=== PATIENT | female | born 1975 | race African-American/Black ===

== ENCOUNTER 2022-10-03 08:58 | Emergency (ER) | payer OTHER ==
[2022-10-03 09:17] VITALS: BMI 25.7
[2022-10-03] MEDS ORDERED: ACETAMINOPHEN 500 MG TABLET (FP) PO ONE (10:28)
[2022-10-03] MEDS ORDERED: ACETAMINOPHEN 500 MG TABLET (FP) ONE (10:50)
[2022-10-03 11:34] VITALS: BP 109/70; PULSE 102; RESP 20; TEMP 99.7
== END 2022-10-03 14:41 | disposition home or self-care (01) ==
LOC: JER 08:58
DX: J09.X2 Influenza due to identified novel influenza A virus with other respiratory manifestations (principal); J06.9 Acute upper respiratory infection, unspecified
CPT/HCPCS: 0241U-QW; 99283-25

== ENCOUNTER 2023-11-13 14:56 | Emergency (ER) | payer OTHER ==
[2023-11-13] MEDS ORDERED: ACETAMINOPHEN 500 MG TABLET (FP) PO ONE (15:53)
[2023-11-13] MEDS ORDERED: ACETAMINOPHEN 325 MG TABLET (FP) ONE (15:58)
[2023-11-13 16:04] VITALS: BMI 25.7
[2023-11-13 17:01] LABS: BASO % 0.4 % (0-2.0); EOS % 1.7 % (0-4.5); HEMATOCRIT 28.5 % (32.4-45.2); HEMOGLOBIN 8.7 GM/dL (10.7-15.3); LYMPH % 30.2 % (8-40); MCH 20.8 pg (25.7-33.7); MCHC 30.7 g/dl (32.0-36.0); MEAN CELL VOLUME 67.8 fl (80-96); MEAN PLT VOLUME 11.1 fl (7.5-11.1); MONO % 5.5 % (3.8-10.2); NEUT % 62.2 % (42.8-82.8); PLATELET COUNT 234 10^3/uL (134-434); RDW 17.7 % (11.6-15.6); WHITE BLOOD COUNT 7.5 K/mm3 (4.0-10.0)
[2023-11-13 17:20] LABS: POTASSIUM 4.3 mmol/L (3.5-5.1)
[2023-11-13 17:22] LABS: ALBUMIN 3.5 g/dl (3.4-5.0); BLOOD UREA NITROGEN 10.5 mg/dL (7-18)
[2023-11-13 17:25] LABS: CREATININE 0.7 mg/dL (0.55-1.3)
[2023-11-13 17:27] LABS: TOT PROT 7.2 g/dl (6.4-8.2)
[2023-11-13 17:28] LABS: BILIRUBIN,TOTAL 1.2 mg/dL (0.2-1)
[2023-11-13 17:32] LABS: ANISOCYTOSIS 2+; MACROCYTOSIS 0; OVALOCYTE 1+; TARGET CELLS 1+; TEAR DROP CELLS 1+
[2023-11-13 17:52] VITALS: BP 134/77; PULSE 62; RESP 20; TEMP 98.4
== END 2023-11-13 17:52 | disposition home or self-care (01) ==
LOC: JER 14:56
DX: R07.9 Chest pain, unspecified (principal); R06.00 Dyspnea, unspecified; R53.83 Other fatigue
CPT/HCPCS: 36415; 71045-TC-FY; 80053; 82550; 84484; 84703; 85025; 93005; 93010; 99285-25

== ENCOUNTER 2023-11-16 23:13 | Emergency (ER) | payer OTHER ==
[2023-11-16 23:22] VITALS: TEMP 98.4; BMI 25.7
[2023-11-16] MEDS ORDERED: ACETAMINOPHEN 1000 MG/100 ML BAG IVPB ONE (23:47)
[2023-11-16] MEDS ORDERED: ACETAMINOPHEN INJECTION 100 ML IVPB ONE (23:56)
[2023-11-17] MEDS ORDERED: NITROGLYCERIN SUBLINGUAL 1/150 0.4 MG TAB SL ONE (00:07)
[2023-11-17] MEDS ORDERED: NITROGLYCERIN SUBLINGUAL 1/150 0.4 MG TAB ONE (00:11)
[2023-11-17 00:39] LABS: URINE APPEARANCE CLEAR; URINE BILIRUBIN NEGATIVE (NEGATIVE); URINE COLOR YELLOW; URINE GLUCOSE (UA) NEGATIVE (NEGATIVE); URINE KETONE NEGATIVE (NEGATIVE); URINE LEUK ESTERASE NEGATIVE (NEGATIVE); URINE NITRITE NEGATIVE (NEGATIVE); URINE PROTEIN NEGATIVE (NEGATIVE)
[2023-11-17] MEDS ORDERED: HYDROCHLOROTHIAZIDE 25 MG TABLET (FP) PO ONE (00:43)
[2023-11-17 00:51] LABS: POTASSIUM 3.6 mmol/L (3.5-5.1)
[2023-11-17 00:54] LABS: CALCIUM 9.1 mg/dL (8.5-10.1)
[2023-11-17 00:55] LABS: ALBUMIN 3.7 g/dl (3.4-5.0)
[2023-11-17 00:57] LABS: CREATININE 0.5 mg/dL (0.55-1.3)
[2023-11-17 00:58] LABS: HCG,QUALITATIVE URINE Negative
[2023-11-17 01:00] LABS: BASO % 0.5 % (0-2.0); BILIRUBIN,TOTAL 1.1 mg/dL (0.2-1); EOS % 1.3 % (0-4.5); HEMATOCRIT 29.7 % (32.4-45.2); HEMOGLOBIN 9.2 GM/dL (10.7-15.3); LYMPH % 39.9 % (8-40); MCH 21.1 pg (25.7-33.7); MCHC 30.9 g/dl (32.0-36.0); MEAN CELL VOLUME 68.2 fl (80-96); MEAN PLT VOLUME 10.6 fl (7.5-11.1); MONO % 7.7 % (3.8-10.2); NEUT % 50.6 % (42.8-82.8); PLATELET COUNT 215 10^3/uL (134-434); RBC 4.36 M/mm3 (3.60-5.2); RDW 17.4 % (11.6-15.6); TOT PROT 7.3 g/dl (6.4-8.2); WHITE BLOOD COUNT 6.9 K/mm3 (4.0-10.0)
[2023-11-17 01:04] VITALS: RESP 19
[2023-11-17] MEDS ORDERED: POTASSIUM CHLORIDE TABS 20 MEQ TABLET.ER (FP) PO ONE ×2 (01:13→01:19)
[2023-11-17] MEDS ORDERED: MAGNESIUM SULF 50% (8.12 MEQ/2 ML-1 GM VIAL) IVPB ONE (01:13)
[2023-11-17] MEDS ORDERED: MAGNESIUM SULFATE IN WATER 2 GM/50 ML IVPB IVPB ONE (01:19)
[2023-11-17 01:24] VITALS: BP 135/86; PULSE 66
[2023-11-17 04:08] LABS: ANISOCYTOSIS 2+; MACROCYTOSIS 0; OVALOCYTE 2+; TEAR DROP CELLS 2+
== END 2023-11-17 02:14 | disposition home or self-care (01) ==
LOC: JER 23:13
PROC: 3E033NZ Introduction of Analgesics, Hypnotics, Sedatives into Peripheral Vein, Percutaneous Approach (ICD-10-PCS; principal; 2023-11-17)
PROC: 3E033GC Introduction of Other Therapeutic Substance into Peripheral Vein, Percutaneous Approach (ICD-10-PCS; 2023-11-17)
DX: I10 Essential (primary) hypertension (principal); R51.9 Headache, unspecified; R42 Dizziness and giddiness; R07.89 Other chest pain; R06.02 Shortness of breath; M54.9 Dorsalgia, unspecified; M54.2 Cervicalgia; M54.6 Pain in thoracic spine
CPT/HCPCS: 36415; 71045-TC-FY; 80053; 81003; 84484; 84703; 85025; 93005; 93010; 99285-25

== ENCOUNTER 2023-12-16 23:30 | Emergency (ER) | payer OTHER ==
[2023-12-16 23:46] VITALS: BP 158/94; PULSE 81; RESP 18; TEMP 98.8; BMI 26.7
[2023-12-17] MEDS ORDERED: ACETAMINOPHEN 325 MG TABLET (FP) ONE
[2023-12-17] MEDS: ACETAMINOPHEN 325 MG TABLET (FP) PO ONE (00:02)
== END 2023-12-17 01:40 | disposition home or self-care (01) ==
LOC: JER 23:30
DX: M54.2 Cervicalgia (principal); R51.9 Headache, unspecified; M54.50 Low back pain, unspecified; M79.10 Myalgia, unspecified site; V49.50XA Passenger injured in collision with unspecified motor vehicles in traffic accident, initial encounter; Y92.410 Unspecified street and highway as the place of occurrence of the external cause
CPT/HCPCS: 70450-TC; 71045-TC-FY; 72125-TC; 72131-TC; 72170-TC-FY; 99284-25

== ENCOUNTER 2023-12-24 08:22 | Day surgery (SDC) | payer OTHER ==
[2023-12-24] MEDS: FERRIC CARBOXYMALTOSE 750 MG in SODIUM CHLORIDE 250 ML IVPB ONE (09:05)
[2023-12-24 09:11] VITALS: RESP 18; TEMP 98.3
[2023-12-24 10:04] VITALS: BP 109/70; PULSE 69
== END 2023-12-24 10:15 | disposition home or self-care (01) ==
LOC: JONCNONCHE 08:22 → J7W 08:23 → JONCNONCHE 10:15
PROVIDERS: ATTEND Internal Medicine Hematology & Oncology
PROC: 3E033GC Introduction of Other Therapeutic Substance into Peripheral Vein, Percutaneous Approach (ICD-10-PCS; principal; 2023-12-24)
DX: D50.9 Iron deficiency anemia, unspecified (principal)
CPT/HCPCS: 96365; J1439

== ENCOUNTER 2023-12-31 09:24 | Day surgery (SDC) | payer OTHER ==
[2023-12-31 09:32] VITALS: PULSE 82; TEMP 97.7
[2023-12-31] MEDS: FERRIC CARBOXYMALTOSE 750 MG in SODIUM CHLORIDE 250 ML IVPB ONE (10:06)
[2023-12-31 11:24] VITALS: BP 144/90; RESP 20
== END 2023-12-31 11:30 | disposition short-term general hospital (02) ==
LOC: JONCNONCHE 09:24 → J7W 09:25 → JONCNONCHE 11:30
PROVIDERS: ATTEND Internal Medicine Hematology & Oncology
PROC: 3E033GC Introduction of Other Therapeutic Substance into Peripheral Vein, Percutaneous Approach (ICD-10-PCS; principal; 2023-12-31)
DX: D50.9 Iron deficiency anemia, unspecified (principal)
CPT/HCPCS: 96365; J1439

== ENCOUNTER 2023-12-31 11:29 | Emergency (ER) | payer OTHER ==
[2023-12-31 11:38] VITALS: BP 147/90; PULSE 94; RESP 18; TEMP 98.3; BMI 26.4
[2023-12-31 13:36] LABS: EOS % 1.1 % (0-4.5); HEMATOCRIT 24.9 % (32.4-45.2); LYMPH % 25.4 % (8-40); MCH 20.8 pg (25.7-33.7); MCHC 32.2 g/dl (32.0-36.0); MEAN CELL VOLUME 64.8 fl (80-96); MONO % 6.1 % (3.8-10.2); NEUT % 66.4 % (42.8-82.8); PLATELET COUNT 307 10^3/uL (134-434); RBC 3.85 M/mm3 (3.60-5.2); RDW 15.9 % (11.6-15.6); WHITE BLOOD COUNT 7.9 K/mm3 (4.0-10.0)
[2023-12-31 13:59] LABS: POTASSIUM 3.7 mmol/L (3.5-5.1)
[2023-12-31 14:01] LABS: CALCIUM 8.7 mg/dL (8.5-10.1)
[2023-12-31 14:02] LABS: ALBUMIN 3.8 g/dl (3.4-5.0); BLOOD UREA NITROGEN 8.8 mg/dL (7-18)
[2023-12-31 14:05] LABS: CREATININE 0.5 mg/dL (0.55-1.3)
[2023-12-31 14:06] LABS: BILIRUBIN,TOTAL 0.9 mg/dL (0.2-1); TOT PROT 7.4 g/dl (6.4-8.2)
[2023-12-31 14:33] LABS: ANISOCYTOSIS 2+; MACROCYTOSIS 0
[2023-12-31] MEDS ORDERED: ACETAMINOPHEN 325 MG TABLET (FP) ONE (14:50)
[2023-12-31] MEDS: ACETAMINOPHEN 500 MG TABLET (FP) PO ONE (14:58)
== END 2023-12-31 14:59 | disposition home or self-care (01) ==
LOC: JER 11:29
DX: T80.89XA Other complications following infusion, transfusion and therapeutic injection, initial encounter (principal); R07.89 Other chest pain; R53.1 Weakness; R20.2 Paresthesia of skin; R10.9 Unspecified abdominal pain
CPT/HCPCS: 36415; 71046-TC-FY; 80053; 83880; 84484; 84703; 85025; 85379; 93005; 93010; 99285-25

== ENCOUNTER 2023-12-31 19:53 | Emergency (ER) | payer OTHER ==
[2023-12-31 19:59] VITALS: TEMP 98.4; BMI 26.1
[2023-12-31 21:25] LABS: BASO % 0.5 % (0-2.0); EOS % 1.2 % (0-4.5); HEMATOCRIT 24.7 % (32.4-45.2); HEMOGLOBIN 7.6 GM/dL (10.7-15.3); LYMPH % 24.6 % (8-40); MCH 20.3 pg (25.7-33.7); MCHC 30.8 g/dl (32.0-36.0); MEAN CELL VOLUME 65.7 fl (80-96); MEAN PLT VOLUME 9.5 fl (7.5-11.1); MONO % 5.7 % (3.8-10.2); PLATELET COUNT 249 10^3/uL (134-434); RBC 3.76 M/mm3 (3.60-5.2); RDW 16.2 % (11.6-15.6); WHITE BLOOD COUNT 7.6 K/mm3 (4.0-10.0)
[2023-12-31 21:32] LABS: INR 1.19 (0.83-1.09); PROTHROMBIN TIME (PATIENT) 13.8 SEC (9.7-13.0)
[2023-12-31 21:34] LABS: ACTIVATED PTT 27.6 SECONDS (25.2-36.5)
[2023-12-31 21:43] LABS: POTASSIUM 3.1 mmol/L (3.5-5.1)
[2023-12-31 21:45] LABS: CALCIUM 8.3 mg/dL (8.5-10.1)
[2023-12-31 21:46] LABS: ALBUMIN 3.8 g/dl (3.4-5.0)
[2023-12-31 21:49] LABS: CREATININE 0.6 mg/dL (0.55-1.3)
[2023-12-31 21:50] LABS: BILIRUBIN,TOTAL 1.2 mg/dL (0.2-1); TOT PROT 7.3 g/dl (6.4-8.2)
[2023-12-31 22:03] LABS: MAGNESIUM 1.6 mg/dL (1.8-2.4)
[2023-12-31] MEDS ORDERED: POTASSIUM CHLORIDE TABS 20 MEQ TABLET.ER (FP) PO ONE (22:34)
[2023-12-31] MEDS ORDERED: MAGNESIUM SULFATE IN WATER 2 GM/50 ML IVPB IVPB ONE (22:34)
[2023-12-31] MEDS: MAGNESIUM SULF 50% (8.12 MEQ/2 ML-1 GM VIAL) IVPB ONE (23:10)
[2023-12-31] MEDS: SODIUM CHLORIDE 0.9% 500 ML INFUS.BAG IV ONE (23:10)
[2023-12-31] MEDS: POTASSIUM CHLORIDE TABS 20 MEQ TABLET.ER (FP) PO ONE (23:15)
[2024-01-01 00:25] VITALS: BP 123/96; PULSE 79; RESP 14
== END 2024-01-01 01:22 | disposition home or self-care (01) ==
LOC: JER 19:53
PROC: 3E033NZ Introduction of Analgesics, Hypnotics, Sedatives into Peripheral Vein, Percutaneous Approach (ICD-10-PCS; principal; 2023-12-31)
DX: R06.02 Shortness of breath (principal); N93.9 Abnormal uterine and vaginal bleeding, unspecified; R10.9 Unspecified abdominal pain; R00.0 Tachycardia, unspecified; E87.6 Hypokalemia; E83.42 Hypomagnesemia
CPT/HCPCS: 36415; 71275-TC; 80053; 83735; 84484; 85025; 85610; 85730; 86850; 86900; 86901; 93005; 93010; 99285-25; Q9967

== ENCOUNTER 2024-05-11 08:49 | Emergency (ER) | payer OTHER ==
[2024-05-11 08:58] VITALS: RESP 18; TEMP 98.2; BMI 25.7
[2024-05-11] MEDS ORDERED: LIDOCAINE 4% PATCH TP ONE (10:07)
[2024-05-11] MEDS ORDERED: KETOROLAC TROMETHAMINE 30 MG/1 ML VIAL ONE (10:07)
[2024-05-11] MEDS: LIDOCAINE 4% PATCH TP ONE (10:13)
[2024-05-11 11:34] LABS: BASO % 1.1 % (0-2.0); EOS % 0.9 % (0-4.5); HEMOGLOBIN 10.4 GM/dL (10.7-15.3); LYMPH % 35.6 % (8-40); MCH 21.6 pg (25.7-33.7); MCHC 31.5 g/dl (32.0-36.0); MEAN CELL VOLUME 68.7 fl (80-96); MEAN PLT VOLUME 9.6 fl (7.5-11.1); NEUT % 56.4 % (42.8-82.8); PLATELET COUNT 256 10^3/uL (134-434); RBC 4.81 M/mm3 (3.60-5.2); RDW 16.5 % (11.6-15.6); WHITE BLOOD COUNT 6.5 K/mm3 (4.0-10.0)
[2024-05-11 11:36] LABS: INR 1.12 (0.83-1.09); PROTHROMBIN TIME (PATIENT) 12.8 SEC (9.7-13.0)
[2024-05-11 11:40] LABS: ACTIVATED PTT 29.3 SECONDS (25.2-36.5)
[2024-05-11] MEDS: KETOROLAC TROMETHAMINE 15 MG/ML VIAL IVPUSH ONE (12:04)
[2024-05-11] MEDS: KETOROLAC TROMETHAMINE 30 MG/1 ML VIAL IM ONE (12:05)
[2024-05-11 12:12] LABS: CALCIUM 9.8 mg/dL (8.5-10.1)
[2024-05-11 12:13] LABS: ALBUMIN 4.5 g/dl (3.4-5.0); BLOOD UREA NITROGEN 11.2 mg/dL (7-18)
[2024-05-11 12:16] LABS: ANISOCYTOSIS 2+; CREATININE 0.6 mg/dL (0.55-1.3); MACROCYTOSIS 0; TARGET CELLS 1+
[2024-05-11 12:18] LABS: BILIRUBIN,TOTAL 1.2 mg/dL (0.2-1)
[2024-05-11 16:28] VITALS: BP 124/80; PULSE 82
[2024-05-11] MEDS ORDERED: LIDOCAINE PATCH REMOVAL MC SCH (22:00)
== END 2024-05-11 16:28 | disposition home or self-care (01) ==
LOC: JERFT 08:49
PROC: 3E0333Z Introduction of Anti-inflammatory into Peripheral Vein, Percutaneous Approach (ICD-10-PCS; principal; 2024-05-11)
DX: M50.00 Cervical disc disorder with myelopathy, unspecified cervical region (principal); R20.0 Anesthesia of skin; Z20.822 Contact with and (suspected) exposure to COVID-19
CPT/HCPCS: 0241U-QW; 36415; 72141-TC; 80053; 84703; 85025; 85610; 85730; 86850; 86900; 86901; 99284-25

== ENCOUNTER 2024-06-24 04:06 | Day surgery (SDC) | payer OTHER ==
[2024-06-24] MEDS ORDERED: PHENAZOPYRIDINE HCL 100 MG TABLET (FP) ONE (06:25)
[2024-06-24] MEDS: PHENAZOPYRIDINE HCL 100 MG TABLET (FP) PO ONE (06:57)
[2024-06-24] MEDS ORDERED: CEFAZOLIN 2 GM in DEXTROSE 5%-WATER 100 ML IVPB ONE (07:00)
[2024-06-24] MEDS ORDERED: ACETAMINOPHEN 1000 MG/100 ML BAG IVPB ONE (07:00)
[2024-06-24] MEDS ORDERED: TRANEXAMIC ACID 1000 MG/10 ML VIAL IVPUSH ONE (07:30)
[2024-06-24] MEDS ORDERED: ACETAMINOPHEN INJECTION 100 ML IVPB ONE (07:32)
[2024-06-24] MEDS ORDERED: SEVOFLURANE 250 ML BTL ONE (07:32)
[2024-06-24] MEDS ORDERED: PROPOFOL 20 ML ONE (07:33)
[2024-06-24] MEDS ORDERED: HYDROmorphone HCl 2 MG/ML VIAL ONE (07:33)
[2024-06-24] MEDS ORDERED: MIDAZOLAM HCL 2 MG/2 ML SINGLE DOSE VIAL ONE (07:33)
[2024-06-24] MEDS ORDERED: SUGAMMADEX SODIUM 200 MG/2 ML VIAL ONE (07:33)
[2024-06-24] MEDS ORDERED: ROCURONIUM BROMIDE 50 MG/5 ML SYRINGE ONE (07:33)
[2024-06-24] MEDS ORDERED: ONDANSETRON 4 MG/2 ML VIAL ONE (07:34)
[2024-06-24] MEDS ORDERED: DEXAMETHASONE SOD PHOSPHATE 4 MG/1 ML VIAL ONE (07:34)
[2024-06-24] MEDS ORDERED: LIDOCAINE HCL/PF 2% SDV 5ML VIAL ONE (07:34)
[2024-06-24] MEDS: ceFAZolin SODIUM 1 GM VIAL IVPB ONE (07:55)
[2024-06-24] MEDS ORDERED: ceFAZolin SODIUM 1 GM VIAL ONE ×2 (07:57→12:54)
[2024-06-24] MEDS ORDERED: TRANEXAMIC ACID 1000 MG/10 ML VIAL ONE (07:57)
[2024-06-24] MEDS ORDERED: KETOROLAC TROMETHAMINE 30 MG/1 ML VIAL ONE (08:54)
[2024-06-24] MEDS ORDERED: ONDANSETRON 4 MG/2 ML VIAL IVPUSH PRN ×2 (09:31)
[2024-06-24] MEDS ORDERED: DOCUSATE SODIUM 100 MG CAPSULE (FP) PO PRN (09:31)
[2024-06-24] MEDS ORDERED: SIMETHICONE 80 MG TAB.CHEW (FP) PO PRN (09:31)
[2024-06-24] MEDS ORDERED: PROMETHAZINE HCL 25 MG/1 ML VIAL IVPB PRN (09:31)
[2024-06-24] MEDS ORDERED: oxyCODONE HCL 5 MG TABLET PO PRN ×2 (09:31)
[2024-06-24] MEDS ORDERED: ACETAMINOPHEN 325 MG TABLET (FP) PO SCH (09:45)
[2024-06-24] MEDS: LACTATED RINGERS SOLUTION 1,000 ML IV SCH (10:41)
[2024-06-24] MEDS ORDERED: HYDROmorphone HCL CARPU-JECT 2 MG/1 ML DISP.SYRIN ONE (12:09)
[2024-06-24] MEDS: HYDROmorphone HCL CARPU-JECT 2 MG/1 ML DISP.SYRIN IVPUSH ONE (12:19)
[2024-06-24] MEDS ORDERED: ACETAMINOPHEN 325 MG TABLET (FP) ONE (12:54)
[2024-06-24] MEDS: ACETAMINOPHEN 325 MG TABLET (FP) PO SCH (13:00)
[2024-06-24] MEDS ORDERED: IBUPROFEN 800 MG/8 ML IJ IVPB SCH (13:00)
[2024-06-24] MEDS: CEFAZOLIN 1 GM in DEXTROSE 5%-WATER 100 ML IVPB SCH (14:41)
[2024-06-24] MEDS ORDERED: ACETAMINOPHEN 1000 MG/100 ML BAG IVPB PRN (15:00)
[2024-06-24] MEDS: HYDROCHLOROTHIAZIDE 25 MG TABLET (FP) PO SCH (16:33)
[2024-06-24] MEDS ORDERED: IBUPROFEN 800 MG/8 ML IJ IVPB ONE (17:57)
[2024-06-24] MEDS: IBUPROFEN 800 MG/8 ML IJ IVPB SCH (18:02)
[2024-06-24 18:40] LABS: HEMATOCRIT 27.8 % (32.4-45.2); HEMOGLOBIN 8.7 GM/dL (10.7-15.3); MCH 21.3 pg (25.7-33.7); MCHC 31.2 g/dl (32.0-36.0); MEAN CELL VOLUME 68.1 fl (80-96); MEAN PLT VOLUME 9.3 fl (7.5-11.1); PLATELET COUNT 248 10^3/uL (134-434); RBC 4.07 M/mm3 (3.60-5.2); RDW 15.7 % (11.6-15.6); WHITE BLOOD COUNT 11.8 K/mm3 (4.0-10.0)
[2024-06-24 19:02] LABS: BLOOD UREA NITROGEN 5.7 mg/dL (7-18); CALCIUM 9.2 mg/dL (8.5-10.1)
[2024-06-24 19:05] LABS: CREATININE 0.7 mg/dL (0.55-1.3)
[2024-06-24] MEDS: oxyCODONE HCL 5 MG TABLET PO PRN (21:40)
[2024-06-24] MEDS: TOPIRAMATE 25 MG TABLET PO SCH (23:51)
[2024-06-25] MEDS: CEFAZOLIN 1 GM in DEXTROSE 5%-WATER 100 ML IVPB SCH (00:35)
[2024-06-25] MEDS: ZOLPIDEM TARTRATE 5 MG TABLET PO PRN (01:03)
[2024-06-25] MEDS: BISACODYL 5 MG TABLET.DR (FP) PO PRN (05:23)
[2024-06-25 08:57] LABS: HEMATOCRIT 27.1 % (32.4-45.2); HEMOGLOBIN 8.6 GM/dL (10.7-15.3); MCH 21.7 pg (25.7-33.7); MCHC 31.7 g/dl (32.0-36.0); MEAN CELL VOLUME 68.3 fl (80-96); MEAN PLT VOLUME 10.1 fl (7.5-11.1); PLATELET COUNT 244 10^3/uL (134-434); RBC 3.97 M/mm3 (3.60-5.2); RDW 15.8 % (11.6-15.6); WHITE BLOOD COUNT 9.3 K/mm3 (4.0-10.0)
[2024-06-25 09:21] LABS: BLOOD UREA NITROGEN 6.3 mg/dL (7-18); CALCIUM 9.5 mg/dL (8.5-10.1)
[2024-06-25 09:25] LABS: CREATININE 0.7 mg/dL (0.55-1.3)
[2024-06-25] MEDS: ENOXAPARIN NA (PORCINE) 40 MG/0.4 ML DISP.SYRIN SQ SCH (10:01)
[2024-06-25] MEDS: BENZOCAINE/MENTH/CETYLPYRD CL 1 EACH LOZENGE MM PRN (17:59)
[2024-06-25] MEDS: oxyCODONE HCL 5 MG TABLET PO PRN (21:34)
[2024-06-26 10:41] VITALS: BP 120/84; PULSE 74; RESP 18; TEMP 98.6
== END 2024-06-26 12:55 | disposition home or self-care (01) ==
LOC: JASUSAT 04:06 → J6S 18:11 → JASUSAT 06-26 12:55
PROVIDERS: ATTEND Obstetrics & Gynecology
PROC: 0UT7FZZ Resection of Bilateral Fallopian Tubes, Via Natural or Artificial Opening With Percutaneous Endoscopic Assistance (ICD-10-PCS; 2024-06-24)
PROC: 0UT9FZZ Resection of Uterus, Via Natural or Artificial Opening With Percutaneous Endoscopic Assistance (ICD-10-PCS; principal; 2024-06-24 07:30)
PROC: 0UT2FZZ Resection of Bilateral Ovaries, Via Natural or Artificial Opening With Percutaneous Endoscopic Assistance (ICD-10-PCS; 2024-06-24 07:30)
DX: D25.1 Intramural leiomyoma of uterus (principal); N83.02 Follicular cyst of left ovary; N83.11 Corpus luteum cyst of right ovary
CPT/HCPCS: 58554; S2900; 36415; 80048; 81025; 85027; 86850; 86900; 86901; 88305-TC; 88307-TC; 94760; J0131

== ENCOUNTER 2024-07-21 22:10 | Emergency (ER) | payer OTHER ==
[2024-07-21 22:31] VITALS: BMI 26.1
[2024-07-21] MEDS ORDERED: ACETAMINOPHEN INJECTION 100 ML ONE (23:04)
[2024-07-21] MEDS: ACETAMINOPHEN 1000 MG/100 ML BAG IVPB ONE (23:05)
[2024-07-21 23:15] LABS: BASO % 0.8 % (0-2.0); EOS % 1.5 % (0-4.5); HEMATOCRIT 29.3 % (32.4-45.2); HEMOGLOBIN 9.1 GM/dL (10.7-15.3); LYMPH % 29.5 % (8-40); MCH 21.2 pg (25.7-33.7); MEAN CELL VOLUME 68.5 fl (80-96); MEAN PLT VOLUME 9.8 fl (7.5-11.1); MONO % 5.6 % (3.8-10.2); NEUT % 62.6 % (42.8-82.8); PLATELET COUNT 264 10^3/uL (134-434); RBC 4.28 M/mm3 (3.60-5.2); RDW 15.7 % (11.6-15.6); WHITE BLOOD COUNT 9.2 K/mm3 (4.0-10.0)
[2024-07-21 23:47] LABS: ANISOCYTOSIS 2+; MACROCYTOSIS 0; OVALOCYTE 1+; TEAR DROP CELLS 1+
[2024-07-21 23:55] LABS: CALCIUM 9.6 mg/dL (8.5-10.1)
[2024-07-21 23:56] LABS: ALBUMIN 3.8 g/dl (3.4-5.0)
[2024-07-22] LABS: CREATININE 0.6 mg/dL (0.55-1.3); POTASSIUM 4.9 mmol/L (3.5-5.1)
[2024-07-22 00:02] LABS: TOT PROT 7.3 g/dl (6.4-8.2)
[2024-07-22 00:14] LABS: BLOOD UREA NITROGEN 10.1 mg/dL (7-18)
[2024-07-22 00:23] LABS: BILIRUBIN,TOTAL 1.1 mg/dL (0.2-1)
[2024-07-22] MEDS ORDERED: KETOROLAC TROMETHAMINE 15 MG/ML VIAL ONE ×2 (00:58→02:46)
[2024-07-22] MEDS: KETOROLAC TROMETHAMINE 15 MG/ML VIAL IVPUSH ONE ×2 (01:01→02:48)
[2024-07-22 02:39] LABS: URINE APPEARANCE CLEAR; URINE BILIRUBIN NEGATIVE (NEGATIVE); URINE COLOR YELLOW; URINE GLUCOSE (UA) NEGATIVE (NEGATIVE); URINE KETONE NEGATIVE (NEGATIVE); URINE LEUK ESTERASE NEGATIVE (NEGATIVE); URINE NITRITE NEGATIVE (NEGATIVE); URINE PROTEIN NEGATIVE (NEGATIVE)
[2024-07-22 03:40] VITALS: BP 134/87; PULSE 79; RESP 16; TEMP 97.7
== END 2024-07-22 04:33 | disposition home or self-care (01) ==
LOC: JER 22:10
DX: R07.9 Chest pain, unspecified (principal); R06.02 Shortness of breath; Z20.822 Contact with and (suspected) exposure to COVID-19
CPT/HCPCS: 0241U-QW; 36415; 71045-TC-FY; 71275-TC; 80053; 81003; 84484; 84703; 85025; 87077; 87086; 93005; 93010; 99285-25; J0131

== ENCOUNTER 2024-09-23 07:16 | Emergency (ER) | payer OTHER ==
[2024-09-23] MEDS ORDERED: IBUPROFEN 400 MG TABLET (FP) PO ONE (08:54)
[2024-09-23] MEDS ORDERED: ACETAMINOPHEN 500 MG TABLET (FP) ONE (08:55)
[2024-09-23] MEDS: ACETAMINOPHEN 500 MG TABLET (FP) PO ONE (09:14)
[2024-09-23] MEDS: IBUPROFEN 400 MG TABLET (FP) PO ONE (09:15)
[2024-09-23 09:33] VITALS: BP 117/79; PULSE 77; RESP 17; TEMP 98.3; BMI 26.6
== END 2024-09-23 11:30 | disposition home or self-care (01) ==
LOC: JER 07:16
DX: M79.89 Other specified soft tissue disorders (principal); M79.604 Pain in right leg; M79.605 Pain in left leg
CPT/HCPCS: 93970-TC; 99284-25